=== PATIENT | male | born 1980 | race Caucasian/White ===

== ENCOUNTER 2024-04-19 12:46 | Outpatient (AMB) | payer BC, SELFPAY ==
--- NOTE | 2024-04-19 13:21 | A.OFFPC_ITS ---
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 Intake Note: New patient visit Tv Production Assistant Required: No Allergies No Known Allergies Allergy (Verified 04/19/24 13:29) Tobacco use date assessed: 04/19/24 Dental Screening Dental Screen Date: 04/19/24 Did you have a dental visit in the last 12 months?: Yes Did you have a dental problem in the last 6 months where you did not have access to dental care?: No Was dental information given to patient?: Patient has dentist HPI HPI Comments History of Present Illness Details 43 year old male with a past medical his tory of asthma presenting to [facility] Asthma -stable on symbicort, albuterol prn Due for colon cancer screening. ROS CONSTITUTIONAL: Denies weight loss, fever and chills. HEENT: Denies changes in vision and hearing. RESPIRATORY: Denies SOB and cough. CV: Denies palpitations and CP GI: Denies abdominal pain, nausea, vomiting and diarrhea. : Denies dysuria and urinary frequency. MSK: Denies new myalgia and joint pain. SKIN: Denies rash and pruritus. NEUROLOGICAL: Denies headache PSYCHIATRIC: Denies recent changes in mood. PHYSICAL EXAM: GENERAL: Alert and oriented x 3. NAD EYES: EOMI. Anicteric. HENT: Moist mucous membranes. No scleral icterus. No cervical lymphadenopathy. LUNGS: Clear to auscultation bilaterally. CARDIOVASCULAR: Regular rate and rhythm. No murmur. No JVD. ABDOMEN: Soft, non-tender +bs EXTREMITIES: No edema. Non-tender. SKIN: No rashes or lesions. Warm. NEUROLOGIC: No focal neurological deficits. CN II-XII grossly intact PSYCHIATRIC: Cooperative. 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 Current occupational exposures/hazards: Yes Cognitive needs: No Hearing needs: No Vision needs: No Questionnaire PHQ-9 Over the last 2 weeks, how often have you been bothered by any of the following problems? 1. Little interest or pleasure in doing things: not at all 2. Feeling down, depressed, or hopeless: not at all 3. Trouble falling or staying asleep, or sleeping too much: not at all 4. Feeling tired or having little energy: not at all 5. Poor appetite or overeating: not at all 6. Feeling bad about yourself - or that you are a failure or have let yourself or your family down: not at all 7. Trouble concentrating on things, such as reading the newspaper or watching television: not at all 8. Moving or speaking so slowly that other people could have noticed. Or the opposite - being so fidgety or restless that you have been moving around a lot more than usual: not at all 9. Thoughts that you would be better off or of hurting yourself in some way: not at all Total score: 0 Depression Screening Interpretation: Negative Depression Screening Done: Yes 40471 - PHQ-9 Billing: Yes Source: Developed by Drs. Juanito Boswell, Dacia Faye, Molina Curiel and colleagues, with an educational franck from [employer]. Thrive Questionnaire Date Thrive assessed: 04/12/24 I am a: Patient What is your living situation today?: I have a steady place to live Within the past 12 months, did the food you bought not last and you didn't have the money to get more?: Never true Within the past 12 months, did you worry whether your food would run out before you got money to buy more?: Never true Do you have trouble paying for medicines?: No Do you have trouble getting transportation to medical appointments?: No Do you have trouble paying your heating and electricity bill?: No Do you have trouble taking care of your child, family member or friend?: No Do you have trouble with day-to-day activities such as bathing, preparing meals, shopping, managing finances, etc.?: No Are you currently unemployed and looking for a job?: No Are you interested in more education?: No Please select the resources that you would like help with: None Currently or been in a relationship where the following occur: No concerns reported THRIVE Score: 0 AUDIT C Alcohol Use Questionnaire (AUDIT-C) 1. How often do you have a drink containing alcohol?: 2-4 times a month 2. How many drinks containing alcohol do you have on a typical day when you are drinking?: 3 or 4 3. How often do you have six or more drinks on one occasion?: Less than monthly Total Score: 4 ASTRID-7 AMB Questionnaire ASTRID-7 Date ASTRID - 7 assessed: 04/19/24 Feeling nervous, anxious, or on edge: 0 = Not at all Not being able to stop or control worryin = Not at all Worrying too much about different things: 0 = Not at all Trouble relaxin = Not at all Being so restless that it is hard to sit still: 0 = Not at all Becoming easily annoyed or irritable: 0 = Not at all Feeling afraid as if something awful might happen: 0 = Not at all Total ASTRID-7 score (0-4 normal; 5-9 mild; 10-14 moderate; 15-21 severe): 0 Source: Developed by Drs. Juanito Boswell, Dacia Faye, Molina Curiel and colleagues, with an educational franck from [employer]. ASTRID-7 Assessment Billing ASTRID-7 Assessment Tool: ASTRID-7 Assessment 90211 Physical exam (Primary Care) Vital Signs: Last Vital Signs Pulse 75 04/19/24 13:24 BP 110/78 04/19/24 13:24 Pulse Ox 98 04/19/24 13:24 Oxygen Delivery Method Room Air 04/19/24 13:24 BMI result Body Mass Index 27.5 Tobacco/Smoking Status: Tobacco use Status Tobacco use date assessed 04/19/24 04/19/24 13:27 Patient Tobacco Use Status Current everyday Tobacco 04/19/24 13:36 e-Cigarette/Vaping Use Former Use 04/19/24 13:36 PHQ-9: PHQ-9 Score PHQ-9: Total score 0 05/02/24 06:55 Depression Screening Interpretation: Negative Thrive Assessment: Date of Thrive Assessment Date Thrive assessed 04/12/24 04/19/24 13:27 Currently or been in a relationship where the following occur: No concerns reported Coding Level of Care Code Est Pt Level 4 (41578) Complex EM visit Add On G2211 Diagnoses Moderate persistent asthma without complication J45.40 Asthma complication type: uncomplicated Asthma persistence: persistent Asthma severity: moderate Encounter for screening for malignant neoplasm of colon Z12.11 Additional Codes ASTRID-7 Assessment Billing - ASTRID-7 Assessment Tool: ASTRID-7 Assessment 26625 ([id number]) PHQ-9 - 22345 - PHQ-9 Billing: Yes ([id number]) Assessment & Plan Assessment & Plan (1) Asthma: Code(s): J45.909 - Unspecified asthma, uncomplicated Qualifiers: Asthma complication type: uncomplicated Asthma persistence: persistent Asthma severity: moderate Qualified Code(s): J45.40 - Moderate persistent asthma, uncomplicated Plan: Moderate persistent without exacerbation Stable on current medications (2) Encounter for screening for malignant neoplasm of colon: Code(s): Z12.11 - Encounter for screening for malignant neoplasm of colon Plan: referral to GI placed Plan 43 y/o to establish care. Past medical, surgical, social and family history reviewed. Chart updated Orders: Orders Complete Blood Count Auto Diff 04/19/24 J45.909 - Unspecified asthma, uncomplicated Lipid Panel 04/19/24 Z13.220 - Encounter for screening for lipoid disorders Comprehensive Met. Panel 04/19/24 J45.909 - Unspecified asthma, uncomplicated Referrals Gastroenterology Referral Z12.11 - Encounter for screening for malignant neoplasm of colon Medications: New ndkfoaqiir-ttqqzqkv-euammbhbkl 160-9-4.8 mcg/actuation (Breztri Aerosphere) 2 inhalations inhalation BID 10.7 grams 3RF J45.909 - Unspecified asthma, uncomplicated albuterol sulfate 90 mcg/actuation 2 puffs inhalation .twice daily PRN 8.5 grams 3RF shortness of breath or wheezing
[2024-04-19 13:24] VITALS: BP 110/78; PULSE 75; O2SAT 98; BMI 27.5
--- OUTSIDE RECORDS SUMMARY | 2024-04-19 14:21 | XMS_ITS | Encounter Summary ---
Author Organization [facility] Address [address] [place] [address] Care Team Providers Care Media Buyer Name Role Phone Micaela Colby MD Primary Care Provider [phone] Encounter Details Date Type Department Care Team (Late st Contact Info) Description 03/08/2024 Scanned Document [address] [place] [phone] Provider, Generic Social History Tobacco Use Types Packs/Day Years Used Date Smoking Tobacco: Every Day Cigarettes Smokeless Tobacco: Never Sex and Gender Information Value Date Recorded Sex Assigned at Not on file Gender Identity Not on file Sexual Orientation Not on file documented as of this encounter Plan of Treatment Not on file documented as of this encounter Visit Diagnoses Not on filedocumented in this encounter Care Teams Media Buyer Relationship Specialty Start Date End Date Micaela Colby MD [address] [place] [address] [place] [phone] PCP - General Internal Medicine 11/28/23 documented as of this encounter
--- OUTSIDE RECORDS SUMMARY | 2024-04-19 14:21 | XMS_ITS | Encounter Summary ---
Author Organization [facility] Address [address] [place] [address] Care Team Providers Care Superintendent Building Name Role Phone Micaela Colby MD Primary Care Provider [phone] Encounter Details Date Type Department Care Team (Late st Contact Info) Description 11/28/2023 Scanned Document [address] [place] [phone] Provider, Generic Social History Tobacco Use Types [...] on filedocumented in this encounter Care Teams Superintendent Building Relationship Specialty Start Date End Date Micaela Colby MD [address] [place] [address] [place] [phone] PCP - General Internal Medicine 11/28/23 documented as of this encounter
--- OUTSIDE RECORDS SUMMARY | 2024-04-19 14:21 | XMS_ITS | Encounter Summary ---
Author Organization [facility] Address [address] [place] [address] Care Team Providers Care Sap Pi Architect Name Role Phone Micaela Colby MD Primary Care Provider [phone] Encounter Details Date Type Department Care Team (Late st Contact Info) Description 11/28/2023 Scanned Document [address] [place] [phone] Provider, Generic Social History Tobacco Use Types [...] on filedocumented in this encounter Care Teams Sap Pi Architect Relationship Specialty Start Date End Date Micaela Colby MD [address] [place] [address] [place] [phone] PCP - General Internal Medicine 11/28/23 documented as of this encounter
--- OUTSIDE RECORDS SUMMARY | 2024-04-19 14:21 | XMS_ITS | Clinical Summary ---
Author Organization [facility] Address [address] [place] [address] Care Team Providers Care Executive Associate Name Role Phone Micaela Colby MD Primary Care Provider [phone] Allergies No known active allergies Medications Medication Sig Dispensed Refills Start Date End Date Status albuterol (PROVENTIL HFA; VENTOLIN HFA) 108 (90 Base) MCG/ACT inhaler 01/29/2023 Active Symbicort 160-4.5 MCG/ACT inhaler INHALE 2 PUFFS INTO THE LUNGS TWICE A DAY 01/04/2023 Active amoxicillin-clavulana te (AUGMENTIN) 875-125 MG per tabletIndications:Acu te bacterial sinusitis Take 1 tablet by mouth 2 (two) times a day. 14 tablet 11/28/2023 Active predniSONE (DELTASONE) 20 MG tabletIndications:Acu te bacterial sinusitis Take 2 tablets (40 mg total) by mouth daily. With food. 10 tablet 11/28/2023 Active predniSONE (DELTASONE) 20 MG tabletIndications:Mod erate persistent asthma, unspecified whether complicated Take 2 tablets (40 mg total) by mouth daily. With food. 14 tablet 03/08/2024 Active Active Problems No known active problems Encounters Date Type Department Care Team Description 03/08/2024 10:35 AM EST Office Visit [facility] [address] [phone] Christiano Ceballos MD Tibbitts, Brandon L, PALizzyC Acute non-recurrent maxillary sinusitis (Primary Dx); Moderate persistent asthma, unspecified whether complicated 03/08/2024 Scanned Document [facility] [address] [facility] [address] [facility] [place] [phone] Provider, Generic 03/08/2024 Travel 03/08/2024 Scanned Document [facility] [address] [facility] [address] [place] [phone] Provider, Generic from Last 3 Months Social History Tobacco Use Types Packs/Day Years Used Date Smoking Tobacco: Every Day Cigarettes Smokeless Tobacco: Never Tobacco Cessation:Ready to Q uit: Not Asked; Counseling Given: Not Answered Sex and Gender Information Value Date Recorded Sex Assigned at Not on file Gender Identity Not on file Sexual Orientation Not on file Last Filed Vital Signs Vital Sign Reading Time Taken Comments Blood Pressure 147/99 03/08/2024 10:30 AM EST Pulse 101 03/08/2024 10:30 AM EST Temperature 36.8 ??C (98.2 ??F) 03/08/2024 10:[address] Respiratory Rate 18 03/08/2024 10:30 AM EST Oxygen Saturation 94% 03/08/2024 10:30 AM EST Inhaled Oxygen Concentration - - Weight 86.2 kg (190 lb) 03/08/2024 10:30 AM EST Height 177.8 cm (5' 10 ) 03/08/2024 10:30 AM EST Body Mass Index 27.26 03/08/2024 10:30 AM EST Plan of Treatment Health Maintenance Due Date Last Done Comments Hepatitis C Virus Screening 1978 HIV Screening 09/07/1991 DTaP/Tdap/Td Vaccines (1 - Tdap) 1997 Hepatitis B Vaccines (1 of 3 - 19+ 3-dose series) 1997 Pneumococcal Vaccine: Pediat jm (0-5 Years) and At-Risk Patients (6 to 49 Years) (1 of 2 - PCV) 1997 Colonoscopy 09/07/2023 Influenza Vaccine 10/29/2023 COVID-19 Vaccine ( - 2023-2 5 season) 2023 HPV Vaccines Aged Out No longer eligi ble based on patient's age to complete this topic Care Teams Executive Associate Relationship Specialty Start Date End Date Micaela Colby MD [address] [place] [address] [place] [phone] PCP - General Internal Medicine 11/28/23
--- OUTSIDE RECORDS SUMMARY | 2024-04-19 14:21 | XMS_ITS | Encounter Summary ---
Author Organization [facility] Address [address] [place] [address] Care Team Providers Care Production Maintenance Technician Name Role Phone Micaela Colby MD Primary Care Provider [phone] Encounter Details Date Type Department Care Team (Late st Contact Info) Description 03/08/2024 Scanned Document [address] [place] [phone] Provider, Generic Social History Tobacco Use Types [...] on filedocumented in this encounter Care Teams Production Maintenance Technician Relationship Specialty Start Date End Date Micaela Colby MD [address] [place] [address] [place] [phone] PCP - General Internal Medicine 11/28/23 documented as of this encounter
--- OUTSIDE RECORDS SUMMARY | 2024-04-19 14:21 | XMS_ITS ---
Author Name [facility] Organization Unknown History of Medication Use Medication Directions Dispensed Refills Start Date End Date Stat us doxycycline (MONODOX) 100 MG capsule Take 1 capsule (100 mg total) by mouth 2 (two) times a day. 03/10/2024 03/29/9999 active predniSONE (DELTASONE) 20 MG tablet Take 2 tablets (40 mg total) by mouth daily. With food. 12/01/2023 active amoxicillin-clavulan ate (AUGMENTIN) 875-125 MG per tablet Take 1 tablet by mouth 2 (two) times a day. 02/03/2023 active albuterol (PROVENTIL HFA; VENTOLIN HFA) 108 (90 Base) MCG/ACT inhaler 02/03/2023 active Symbicort 160-4.5 MCG/ACT inhaler INHALE 2 PUFFS INTO THE LUNGS TWICE A DAY 02/03/2023 active Problems Problem Status Onset Date Problem Type Date of Resoluti on Source Acute non-recurrent maxillary sinusitis active EncounterDiagnosisAct HHCCT Moderate persistent asthma, unspecified whether complicated active EncounterDiagnosisAct HHCCT
== END 2024-04-19 13:47 | disposition home or self-care (01) ==
PROVIDERS: PCP Internal Medicine; Visit Provider Internal Medicine
DX: J45.40 Moderate persistent asthma, uncomplicated (principal); Z12.11 Encounter for screening for malignant neoplasm of colon

== ENCOUNTER → 2024-04-19 12:46 | Outpatient (BNVA) | payer BC, SELFPAY | PROVIDERS: PCP Internal Medicine; Visit Provider Internal Medicine | DX: J45.40 Moderate persistent asthma, uncomplicated (principal) | CPT/HCPCS: 96127 ==

== ENCOUNTER 2024-09-16 08:45 | Outpatient (AMB) | payer BC, SELFPAY ==
--- NOTE | 2024-09-16 08:48 | A.OFFVIS_ITS ---
Vital Signs 09/16/24 08:56 Height 5 ft 10 in Weight 192 lb BMI 27.5 BP 134/84 Blood Pressure Location Rt brachial Position Sitting Pulse 76 Pulse Source Pulse Oximeter Pulse Oximetry (%) 97 Oxygen Delivery Method Room Air Intake Visit Reasons: Colonoscopy Screening Intake Note: New pt for initial colo screening. CC: Pt denies any GI sx or concerns at this time. No pertinent FMHx. Conditioning Machine Operator Required: No Accompanied by: Self / Same As Patient Allergies No Known Allergies Allergy (Verified 09/16/24 08:52) HPI HPI Colonoscopy Screening: Details: 44-YEAR-OLD MALE HERE for preprocedural meeting to discuss a screening colonoscopy. He is referred by [facility]. PMX Allergic rhinitis Asthma Smoker Back pain * SURGICAL HISTORY Vasectomy Dental surgery * ALLERGIES: NKDA * [place] LABS: none TODAY'S VISIT This is his first colonoscopy. HIs asthma is well controlled and he denies any cardiac problems. He is naive ti anesthesia and sedation. He has very occasional CIC but this is not a frequent problems and no upper GI problems. No ID problems There is no known FHX of crc or polyps. 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 Current occupational exposures/hazards: Yes Cognitive needs: No Hearing needs: No Vision needs: No Review of Systems Const Denies fatigue, Denies fever(s), Denies night sweats, Denies poor appetite and Denies weight loss ENT Reports Normal hearing present, Denies dental pain, Denies dysphagia, Denies hearing loss, Denies mouth pain, Denies odynophagia, Denies throat swelling, Denies tongue swelling and Reports other (Dentition adequate) Card Reports no additional complaints Resp Reports no additional complaints GI Details: Denies abdominal pain, Denies melena, Denies bloating, Denies hematochezia, Reports constipation, Denies GI cramping, Denies dysphagia, Denies excessive flatus, Denies early satiety, Denies heartburn, Denies diarrhea, Denies nausea, Denies odynophagia, Denies vomiting and Denies hematemesis Skin/Breast Denies pruritus, Denies lesions, Denies rash and Denies jaundice Neuro Reports Normal hearing present and Denies Abnormal speech present Endo Denies fatigue Aller/Immun Denies throat swelling and Denies tongue swelling Physical Exam Vital Signs: Last Vital Signs Pulse 76 09/16/24 08:56 BP 134/84 09/16/24 08:56 Pulse Ox 97 09/16/24 08:56 Oxygen Delivery Method Room Air 09/16/24 08:56 BMI result Body Mass Index 27.5 Const General: cooperative, no acute distress, well developed and well groomed Nutritional Appearance: well nourished Orientation/consciousness: oriented to person, oriented to place and oriented to time Limitations: No language barrier HEENT Head: Yes normocephalic and Yes atraumatic Eyes General: appearance normal, both eyes and all related structures Pupils: Equal, round and reactive pupils present Neck Neck: Yes normal visual inspection and Yes no lymphadenopathy Thyroid: Thyroid normal Resp Effort & Inspection: normal respiratory effort and able to speak in complete sentences Auscultation: clear to auscultation bilaterally Cardio Rate: regular rate Rhythm: regular rhythm Heart sounds: Normal, physiologic split S2 sound present Peripheral pulses: radial pulses present and posterior tibial pulses present GI Inspection: No distended and No Abdominal panniculus present Palpation (GI): Soft to palpation, nontender, no guarding, not rigid and No hepatosplenomegaly present Percussion: Yes normal to percussion Auscultation: normal bowel sounds Rectal Exam - Male: Yes deferred Skin General skin exam: no rashes or lesions noted, turgor normal, skin not dry, no jaundice, No spider nevi and no striae Rashes: no rashes Nails: normal Neuro General: oriented to person, oriented to place and oriented to time Cranial nerves: Yes Equal, round and reactive pupils present and Yes Normal hearing present Speech: No Abnormal speech present Extrem General: Yes normal to inspection, No clubbing, No cyanosis and No edema Psych Appearance: grossly normal and well kempt Mental Status: mental status grossly normal Speech and movement: Normal speech and movement present Affect: normal affect Attitude: cooperative Thought process: Normal thought process present and not confabulating Thought content: Normal thought content present Insight: Good insight present (Psych) Judgement: Good judgement present (Psych) Assessment & Plan Assessment & Plan (1) Pre-op examination: Code(s): Z01.818 - Encounter for other preprocedural examination Category: Medical Plan This is his first colonoscopy. HIs asthma is well controlled and he denies any cardiac problems. He is naive ti anesthesia and sedation. He has very occasional CIC but this is not a frequent problems and no upper GI problems. No ID problems There is no known FHX of crc or polyps. Orders: Orders Comprehensive Met. Panel Today Z01.818 - Encounter for other preprocedural examination Complete Blood Count Auto Diff Today Z01.818 - Encounter for other preprocedural examination Colonoscopy - GI Use Only Today Z01.818 - Encounter for other preprocedural examination Medications: New peg 3350-electrolytes 236-22.74-6.74 -5.86 gram (Golytely) until fecal effluent is clear; do not exceed a total volume of 2,000 mL 240 mL PO Q10M 4,000 mL 0RF 1 day Z12.11 - Encounter for screening for malignant neoplasm of colon bisacodyl (Dulcolax (bisacodyl)) 10 mg (2 x 5 mg) PO BEDTIME 4 tabs 0RF 2 days Coding Level of Care Code New Pt Level 3 (97115) Diagnoses Pre-op examination Z01.818
[2024-09-16 08:56] VITALS: BP 134/84; PULSE 76; O2SAT 97; BMI 27.5
== END 2024-09-16 09:36 | disposition home or self-care (01) ==
LOC: HO.HGI 08:46
PROVIDERS: PCP Internal Medicine; Visit Provider Nurse Practitioner
DX: Z01.818 Encounter for other preprocedural examination (principal); Z12.11 Encounter for screening for malignant neoplasm of colon
CPT/HCPCS: S0285

== ENCOUNTER 2024-09-16 08:45 | Outpatient (REF) | payer BC, SELFPAY ==
[2024-09-16 09:51] LABS: MANUAL DIFF FLAG NO
[2024-09-16 10:20] LABS: Basophils Percent Auto 0.3 % (0-2); Eosinophils Absolute Auto 0.2 X10*3/uL (0.0-0.4); Eosinophils Percent Auto 2.3 % (0-4); Hematocrit 48.8 % (42.0-52.0); Hemoglobin 16.5 g/dl (14.0-18.0); Imm Gran Abs Auto 0.04 X10*3/uL (0.00-0.03); Imm Gran Pct Auto 0.5 % (0.0-0.4); Lymphocytes Absolute Auto 2.5 X10*3/uL (1.2-4.9); Lymphocytes Percent Auto 28.2 % (20-40); Mean Corpuscular HGB Conc 33.8 g/dl (31.0-36.0); Mean Corpuscular Hemoglobin 30.1 pg (27.0-33.0); Mean Corpuscular Volume 88.9 fL (80.0-98.0); Mean Platelet Volume 10.4 fL (9.4-12.4); Monocytes Absolute Auto 0.6 X10*3/uL (0.1-1.2); Monocytes Percent Auto 6.7 % (2-11); Neutrophils Absolute Auto 5.5 x10*3/uL (2.0-8.3); Platelet Count 411 X10*3/uL (160-400); Red Blood Count 5.49 X10*6/uL (4.60-5.80); White Blood Count 8.8 X10*3/uL (4.8-10.8)
[2024-09-16 11:15] LABS: Alanine Aminotransferase 53 U/L (0-40); Albumin Level 4.9 g/dL (3.5-5.0); Alkaline Phosphatase 112 U/L (39-117); Anion Gap 11 (12-20); Aspartate Amino Transferase 31 U/L (5-37); Bilirubin Total 0.5 mg/dL (0.0-1.0); Blood Urea Nitrogen 11 mg/dL (9-16); Calcium 10.1 mg/dL (8.4-10.2); Carbon Dioxide 29 mmol/L (22-29); Chloride 105 mmol/L (96-108); Cholesterol 220 mg/dL (<200); Estimated Glomerular Filt Rate > 60; Glucose Random 86 mg/dL (60-115); HDL Cholesterol 43 mg/dL (>40); LDL Cholesterol Calculated 127 mg/dL (<100); Potassium 4.1 mmol/L (3.3-5.1); Sodium 141 mmol/L (135-145); Total Protein 7.2 g/dL (6.5-8.0); Triglycerides 252 mg/dL (<150)
== END 2024-09-16 08:46 | disposition home or self-care (01) ==
LOC: HO.LAB 08:45
PROVIDERS: PCP Internal Medicine; Visit Provider Nurse Practitioner
DX: Z01.818 Encounter for other preprocedural examination (principal); Z13.220 Encounter for screening for lipoid disorders
CPT/HCPCS: 36415; 80053; 80061; 85025

== ENCOUNTER 2024-10-18 10:54 | Outpatient (AMB) | payer BC, SELFPAY ==
--- NOTE | 2024-10-18 10:57 | A.OFFPC_ITS ---
Vital Signs 10/18/24 11:13 Height 5 ft 10 in Weight 194 lb 4 oz BMI 27.9 BP 116/84 Blood Pressure Location Rt brachial Position Sitting Respiration 12 Pulse 99 Pulse Source Pulse Oximeter Pulse Oximetry (%) 96 Oxygen Delivery Method Room Air Intake Visit Reasons: CPE Intake Note: Physical Bush Hog Operator Required: No Allergies No Known Allergies Allergy (Verified 10/18/24 11:15) Tobacco use date assessed: 10/18/24 Dental Screening Dental Screen Date: 04/19/24 HPI HPI Comments History of Present Illness Details 44 year old male with a past medical his tory of asthma, dyslipidemia presenting for physical exam Asthma -stable on symbicort, albuterol prn Due for colon cancer screening-had his consult last month-he will be scheduled for colonoscopy when available 06/20/2019-Tdap ROS CONSTITUTIONAL: Denies weight loss, fever and chills. HEENT: Denies changes in vision and hearing. RESPIRATORY: Denies SOB and cough. CV: Denies palpitations and CP GI: Denies abdominal pain, nausea, vomiting and diarrhea. : Denies dysuria and urinary frequency. MSK: Denies new myalgia and joint pain. SKIN: Denies rash and pruritus. NEUROLOGICAL: Denies headache PSYCHIATRIC: Denies recent changes in mood. PHYSICAL EXAM: GENERAL: Alert and oriented x 3. NAD EYES: EOMI. Anicteric. HENT: Moist mucous membranes. No scleral icterus. No cervical lymphadenopathy. LUNGS: Clear to auscultation bilaterally. CARDIOVASCULAR: Regular rate and rhythm. No murmur. No JVD. ABDOMEN: Soft, non-tender +bs EXTREMITIES: No edema. Non-tender. SKIN: No rashes or lesions. Warm. NEUROLOGIC: No focal neurological deficits. CN II-XII grossly intact PSYCHIATRIC: Cooperative. 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 Current occupational exposures/hazards: Yes Cognitive needs: No Hearing needs: No Vision needs: No Questionnaire Thrive Questionnaire Date Thrive assessed: 04/12/24 I am a: Patient What is your living situation today?: I have a steady place to live Within the past 12 months, did the food you bought not last and you didn't have the money to get more?: Never true Within the past 12 months, did you worry whether your food would run out before you got money to buy more?: Never true Do you have trouble paying for medicines?: No Do you have trouble getting transportation to medical appointments?: No Do you have trouble paying your heating and electricity bill?: No Do you have trouble taking care of your child, family member or friend?: No Do you have trouble with day-to-day activities such as bathing, preparing meals, shopping, managing finances, etc.?: No Are you currently unemployed and looking for a job?: No Are you interested in more education?: No Please select the resources that you would like help with: None Currently or been in a relationship where the following occur: No concerns reported THRIVE Score: 0 AUDIT C Alcohol Use Questionnaire (AUDIT-C) 1. How often do you have a drink containing alcohol?: 2-4 times a month 2. How many drinks containing alcohol do you have on a typical day when you are drinking?: 1 or 2 3. How often do you have six or more drinks on one occasion?: Never Total Score: 2 ASTRID-7 AMB Questionnaire ASTRID-7 Date ASTRID - 7 assessed: 04/19/24 Source: Developed by Drs. Juanito Boswell, Dacia Faye, Molina Curiel and colleagues, with an educational franck from [employer]. Physical exam (Primary Care) Tobacco/Smoking Status: Tobacco use Status Tobacco use date assessed 04/19/24 10/18/24 10:58 Patient Tobacco Use Status Current everyday Tobacco 10/18/24 10:58 e-Cigarette/Vaping Use Former Use 10/18/24 10:58 Thrive Assessment: Date of Thrive Assessment Date Thrive assessed 04/12/24 10/18/24 10:58 Currently or been in a relationship where the following occur: No concerns reported Coding Level of Care Code Est Pt Prev Care 40-64y(57938) Diagnoses Physical exam Z00.00 Moderate persistent asthma without complication J45.40 Asthma severity: moderate Asthma persistence: persistent Asthma complication type: uncomplicated Allergic rhinitis, unspecified seasonality, unspecified trigger J30.9 Allergic rhinitis trigger: unspecified Allergic rhinitis seasonality: unspecified Assessment & Plan Assessment & Plan (1) Physical exam: Code(s): Z00.00 - Encounter for general adult medical examination without abnormal findings (2) Asthma: Code(s): J45.909 - Unspecified asthma, uncomplicated Category: Medical Qualifiers: Asthma severity: moderate Asthma persistence: persistent Asthma complication type: uncomplicated Qualified Code(s): J45.40 - Moderate persistent asthma, uncomplicated (3) Allergic rhinitis: Code(s): J30.9 - Allergic rhinitis, unspecified Category: Medical Qualifiers: Allergic rhinitis trigger: unspecified Allergic rhinitis seasonality: unspecified Qualified Code(s): J30.9 - Allergic rhinitis, unspecified Plan CPE Interval history reviewed Asthma is adequately controlled on current medications. Preventive measures for age discussed Medications: Changed From budesonide-formoterol 160-4.5 mcg/actuation (Symbicort) 1 puff inhalation BID To budesonide-formoterol 160-4.5 mcg/actuation (Symbicort) 2 puffs inhalation BID 3 ea 3RF From albuterol sulfate 90 mcg/actuation 2 puffs inhalation .twice daily PRN 8.5 grams 3RF shortness of breath or wheezing To albuterol sulfate 90 mcg/actuation 2 puffs inhalation Q6H PRN 8.5 grams 11RF shortness of breath or wheezing
[2024-10-18 11:13] VITALS: BP 116/84; PULSE 99; RESP 12; O2SAT 96; BMI 27.9
--- OUTSIDE RECORDS SUMMARY | 2024-10-18 12:10 | XMS_ITS | Encounter Summary ---
Author Organization [facility] Address [address] [place] [address] Care Team Providers Care Waste Examiner Name Role Phone Micaela Colby MD Primary Care Provider [phone] Encounter Details Date Type Department Care Team (Late st Contact Info) Description 11/28/2023 Scanned Document [address] [place] [phone] Provider, Generic Social History Tobacco Use Types Packs/Day Years Used Date Smoking Tobacco: Every Day Cigarettes Smokeless Tobacco: Never Sex and Gender Information Value Date Recorded Sex Assigned at Not on file Legal Sex Male 7:09 PM EST Gender Identity Not on file Sexual Orientation Not on file documented as of this encounter Plan of Treatment Not on file documented as of this encounter Visit Diagnoses Not on filedocumented in this encounter Care Teams Waste Examiner Relationship Specialty Start Date End Date Micaela Colby MD [address] [place] [address] [phone] PCP - General Internal Medicine 11/28/23 documented as of this encounter
--- OUTSIDE RECORDS SUMMARY | 2024-10-18 12:10 | XMS_ITS ---
Author Name [facility] Organization Unknown History of Medication Use Medication Directions Dispensed Refills Start Date End Date Stat us albuterol (PROVENTIL HFA; VENTOLIN HFA) 108 (90 Base) MCG/ACT inhaler 01/29/2023 active Problems Problem Status Onset Date Problem Type Date of Resoluti on Source Acute non-recurrent maxillary sinusitis active EncounterDiagnosisAct CCT Moderate persistent asthma, unspecified whether complicated active [facility] Encounters Encounter Type Encounter Reason Primary Diagnosis Location Date Ambulatory [facility] 03/08/2024 Ambulatory [facility] 11/28/2023 Ambulatory Acute maxillary sinusitis, unspecified Acute maxillary sinusitis, unspecified [facility] 01/31/2023 Care Team Organization Name Specialty Phone Email Start Date End Da [facility] Micaela Colby [facility] 11/28/2023 [facility] 04/19/2023 [facility] 01/31/2023 06/15/2024 [facility] NO PCP Primary Care 01/31/2023 01/31/2023
== END 2024-10-18 11:40 | disposition home or self-care (01) ==
LOC: HO.HMCFM 10:55
PROVIDERS: PCP Internal Medicine; Visit Provider Internal Medicine
DX: Z00.00 Encounter for general adult medical examination without abnormal findings (principal); J45.40 Moderate persistent asthma, uncomplicated; J30.9 Allergic rhinitis, unspecified

== ENCOUNTER 2025-03-03 09:53 | Outpatient (AMB) | payer BC, SELFPAY ==
--- NOTE | 2025-03-03 10:04 | MHC.PC.OV ---
Vital Signs 03/03/25 10:05 Height 5 ft 10 in Weight 193 lb 6 oz BMI 27.7 BP 126/78 Blood Pressure Location Rt brachial Position Sitting Respiration 14 Pulse 67 Pulse Source Pulse Oximeter Temp 97.1 F Temp Source Oral Pulse Oximetry (%) 95 Oxygen Delivery Method Room Air Intake Visit Reasons: pt referral Intake Note: Seeing orthopedics and they gave referral to [facility] L5- S1 Moderate severe disc degeneration. Plan is to have a cortisone shot. Legal Nurse Consultant Required: No Allergies No Known Allergies Allergy (Verified 03/03/25 10:07) Tobacco use date assessed: 03/03/25 Dental Screening Dental Screen Date: 04/19/24 HPI HPI Comments History of Present Illness Details 44 year old male with a past medical history of asthma, dyslipidemia presenting for follow up Left low back and buttock pain with radiculopathy-Will be getting L5 injection with [facility]. Initially saw orthopedics worked up for left hip problem, then sent to [facility] for back. MRI with L5 disc herniation. Physical therapy also recommended Asthma -stable on symbicort, albuterol prn Due for colon cancer screening-had his consult last month-he will be scheduled for colonoscopy when available 06/20/2019-Tdap ROS see HPI PHYSICAL EXAM: GENERAL: Alert and oriented x 3. NAD EYES: EOMI. Anicteric. HENT: Moist mucous membranes. No scleral icterus. No cervical lymphadenopathy. LUNGS: Clear to auscultation bilaterally. CARDIOVASCULAR: Regular rate and rhythm. No murmur. No JVD. NEUROLOGIC: No focal neurological deficits. PSYCHIATRIC: Cooperative. 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 Current occupational exposures/hazards: Yes Cognitive needs: No Hearing needs: No Vision needs: No Questionnaire Thrive Questionnaire Date Thrive assessed: 04/12/24 I am a: Patient What is your living situation today?: I have a steady place to live Within the past 12 months, did the food you bought not last and you didn't have the money to get more?: Never true Within the past 12 months, did you worry whether your food would run out before you got money to buy more?: Never true Do you have trouble paying for medicines?: No Do you have trouble getting transportation to medical appointments?: No Do you have trouble paying your heating and electricity bill?: No Do you have trouble taking care of your child, family member or friend?: No Do you have trouble with day-to-day activities such as bathing, preparing meals, shopping, managing finances, etc.?: No Are you currently unemployed and looking for a job?: No Are you interested in more education?: No Please select the resources that you would like help with: None Currently or been in a relationship where the following occur: No concerns reported THRIVE Score: 0 AUDIT C Alcohol Use Questionnaire (AUDIT-C) 1. How often do you have a drink containing alcohol?: Monthly or less 2. How many drinks containing alcohol do you have on a typical day when you are drinking?: 1 or 2 3. How often do you have six or more drinks on one occasion?: Never Total Score: 1 ASTRID-7 AMB Questionnaire ASTRID-7 Date ASTRID - 7 assessed: 04/19/24 Source: Developed by Drs. Juanito Boswell, Dacia Faye, Molina Curiel and colleagues, with an educational franck from [employer]. Physical exam (Primary Care) Vital Signs: Last Vital Signs Temp 97.1 F 03/03/25 10:05 Pulse 67 03/03/25 10:05 Resp 14 03/03/25 10:05 BP 126/78 03/03/25 10:05 Pulse Ox 95 03/03/25 10:05 Oxygen Delivery Method Room Air 03/03/25 10:05 BMI result Body Mass Index 27.7 Tobacco/Smoking Status: Tobacco use Status Tobacco use date assessed 03/03/25 03/03/25 10:13 Patient Tobacco Use Status Current someday Tobacco 03/03/25 10:13 e-Cigarette/Vaping Use Former Use 03/03/25 10:13 Thrive Assessment: Date of Thrive Assessment Date Thrive assessed 04/12/24 03/03/25 10:13 Currently or been in a relationship where the following occur: No concerns reported Coding Level of Care Code Est Pt Level 3 (78503) Diagnoses Lumbar disc herniation M51.26 Lumbar radiculopathy M54.16 Assessment & Plan Assessment & Plan (1) Lumbar disc herniation: Code(s): M51.26 - Other intervertebral disc displacement, lumbar region Category: Medical (2) Lumbar radiculopathy: Code(s): M54.16 - Radiculopathy, lumbar region Category: Medical Plan 44 year old for follow up Lumbar disc herniation with upcoming injection planned at [facility]. Needs referral PT which is placed. Orders: Orders PT Evaluation and Treatment 03/03/25 M51.26 - Other intervertebral disc displacement, lumbar region, M54.16 - Radiculopathy, lumbar region
[2025-03-03 10:05] VITALS: BP 126/78; PULSE 67; RESP 14; TEMP 36.2; O2SAT 95; BMI 27.7
== END 2025-03-03 10:33 | disposition home or self-care (01) ==
LOC: HO.HMCFM 09:54
PROVIDERS: PCP Internal Medicine; Visit Provider Internal Medicine
DX: M51.26 Other intervertebral disc displacement, lumbar region (principal); M54.16 Radiculopathy, lumbar region